=== PATIENT | male | born 1975 | race Caucasian/White ===

== ENCOUNTER 2023-05-12 10:20 | Emergency (ER) | payer BC, OTHER ==
[~2023-05-12] VITALS: Ht 193 cm; Wt 131.5 kg
[2023-05-12 10:27] VITALS: BP_SYST 147; PULSE 62; RESP 16; TEMP 98.1; O2SAT 96
--- NOTE | 2023-05-12 10:29 | NUR ---
DR GOMEZ IN ROOM FOR EXAM
[2023-05-12] MEDS ORDERED: NAPR-688 PO (10:48)
[2023-05-12 11:01] VITALS: BP_SYST 147; PULSE 62; RESP 16; TEMP 98.1; O2SAT 96
--- NOTE | 2023-05-12 11:02 | NUR ---
Patient given written and verbal discharge instructions and verbalizes understanding. ER MD discussed with patient the results and treatment provided. Patient in stable condition. ID arm band removed. Rx of Naproxen given. Patient educated on pain management and to follow up with PMD. Pain Scale 2/10. Opportunity for questions provided and answered. Medication side effect fact sheet provided.
== END 2023-05-12 11:02 | disposition home or self-care (01) ==
LOC: SED 10:20
DX: M54.12 Radiculopathy, cervical region (principal); M25.511 Pain in right shoulder; R20.2 Paresthesia of skin; Z79.899 Other long term (current) drug therapy
CPT/HCPCS: 93005; 99283